=== PATIENT | female | born 1980 | race Two or more races ===

== ENCOUNTER 2022-03-15 05:18 | Day surgery (SDC) | payer OTHER ==
[~2022-03-15] VITALS: Ht 167.6 cm; Wt 107.0 kg
[~2022-03-15 05:18] MED LIST: KETO10TA2 PO
== END 2022-03-15 13:10 | disposition home or self-care (01) ==
LOC: CIR.AMB 05:18
PROVIDERS: ATTEND Obstetrics & Gynecology
DX: N93.8 Other specified abnormal uterine and vaginal bleeding (principal); Z20.822 Contact with and (suspected) exposure to COVID-19

== ENCOUNTER 2022-03-22 13:53 | Emergency (ER) | payer OTHER ==
[~2022-03-22] VITALS: Ht 167.6 cm; Wt 106.1 kg
== END 2022-03-22 20:58 | disposition home or self-care (01) ==
LOC: ER 13:53
DX: N93.9 Abnormal uterine and vaginal bleeding, unspecified (principal); D25.9 Leiomyoma of uterus, unspecified